=== PATIENT | female | born 2000 | race Caucasian/White ===

== ENCOUNTER 2021-03-11 00:02 | Emergency (ER) | payer MEDICAID, SELFPAY ==
[2021-03-11 00:59] VITALS: BP 89/58; PULSE 92; RESP 18; TEMP 36.9; O2SAT 95; BMI 32.0
[2021-03-11 02:02] LABS: Basophils % 0.3 %; Eosinophils # 0.1 10^3/uL (0.0-0.8); Eosinophils % 0.4 %; Hematocrit 38.9 % (37.0-47.0); Hemoglobin 13.1 g/dL (11.5-15.3); Lymphocytes # 0.8 10^3/uL (1.5-6.5); Lymphocytes % 6.8 %; Mean Corpuscular HGB Conc 33.7 g/dL (30.0-36.0); Mean Corpuscular Hemoglobin 31.1 pg (28.0-34.0); Mean Corpuscular Volume 92.4 fL (81-99); Mean Platelet Volume 10.6 fL (7.4-10.4); Monocytes # 0.6 10^3/uL (0.2-0.9); Monocytes % 5.2 %; Nucleated Red Blood Cells % 0 %; Platelet Count 241 10^3/cmm (130-400); Red Blood Count 4.21 10^6/uL (4.1-5.3); Red Cell Distribution Width 12.1 % (12.1-15.1); White Blood Count 11.4 10^3/uL (4.5-13.0)
[2021-03-11 02:08] LABS: HCG Qualitative Urine. Negative (Negative)
[2021-03-11 02:14] LABS: Bilirubin Urine 1+ (Negative); Blood Urine Neg (Negative); Glucose Urine UA Norm (Normal); Ketones Urine Negative (Negative); Nitrate Urine Negative (Negative); Protein Urine Neg (Negative); Urine Appearance Clear (CLEAR); Urine Color Yellow (Yellow); Urobilinogen Urine Norm (Negative); pH Urine 5 (5-7)
[2021-03-11 02:15] LABS: Alanine Aminotransferase 12 U/L (0-33); Albumin Level 4.1 g/dL (3.5-5.2); Alkaline Phosphatase 61 IU/L (35-105); Anion Gap 13.8 (5-19); Aspartate Amino Transferase 11 U/L (0-32); Blood Urea Nitrogen 11 mg/dL (6-20); Calcium 8.7 mg/dL (8.5-10.5); Carbon Dioxide 21 mmol/L (22-29); Chloride 102 mmol/L (98-107); Globulin 2.5 g/dL (1.3-4.6); Glomerular Filtration Rate 127.5 mL/min (90-130); Glucose 112 mg/dL (65-115); Lipase 32 U/L (13-60); Osmolality Calculated 276 mOsm/kg (285-295); Potassium 3.8 mmol/L (3.5-5.1); Sodium 133 mmol/L (136-145); Total Bilirubin 0.4 mg/dL (0.15-1.2); Total Protein 6.6 g/dL (6.6-8.7)
[2021-03-11 02:15] LABS: Add Urine Microscopic? YES; Bacteria Urine 1+ /hpf; Leukocyte Esterase Urine Trace (Negative); Mucus Urine 2+ /hpf; RBC Urine 0-4 /hpf (0-2); Squamous Epithelial Cell Urine 0-4 /hpf (0-5)
--- NOTE | 2021-03-11 02:55 | ED_ITS ---
HPI - Abdominal Pain General: Chief Complaint: Abdominal Pain Stated Complaint: mid abd pain Time Seen by Provider: 03/11/21 01:12 History of Present Illness: HPI narrative: Patient is well-appearing 20-year-old female seen for intermittent 6 of 10, sharp abdominal pain which she locates to the periumbilical region radiating both to the left and right which started earlier today. She also endorses diarrhea which started yesterday. She denies nausea, vomiting, fever, dysuria, frequency, and has no other acute complaints. She has never had pain like this before. She has not taken anything for the pain. She thinks she may be . Related Data: Date of Last Menstrual Period: 02/17/21 Review of Systems General: Reports: 10 or more systems reviewed and unremarkable except in HPI and below [facility] ED Female Reproductive History: Date of last menstrual period: 02/17/21 Physical Exam Const: COMMON NORMALS: no acute distress, patient oriented x3 and alert HENMT: COMMON NORMALS: normocephalic and atraumatic HEAD & SCALP: normocephalic and atraumatic Eye: COMMON NORMALS: Equal, round and reactive pupils present, EOMs intact bilaterally and no scleral icterus PUPIL: Yes Equal, round and reactive pupils present Resp: COMMON NORMALS: normal respiratory effort and No retractions Cardio: COMMON NORMALS: regular rate, regular rhythm and No murmurs present (Cardio) RATE: regular rate RHYTHM: regular rhythm GI: COMMON NORMALS: Normal to inspection, nondistended, normoactive bowel sounds present and Soft to palpation PALPATION: Yes Soft to palpation and Yes Tenderness to palpation present (GI) Details: other (Periumbilic and roughly 2 inches most to the left and right of the umbilicus) Neuro: COMMON NORMALS: patient oriented x3 SENSORIUM/ORIENTATION: Yes alert Skin: COMMON NORMALS: no rashes or lesions noted GENERAL SKIN EXAM: no rashes or lesions noted Course Vital Signs: Vital signs: Vital Signs Temperature 98.4 F 03/11/21 00:59 Pulse Rate 92 03/11/21 00:59 Respiratory Rate 18 03/11/21 00:59 Blood Pressure 89/58 03/11/21 00:59 Pulse Oximetry 95 03/11/21 00:59 MDM - Abdominal Pain MDM Narrative: Medical decision making narrative: Patient remained hemodynamically stable throughout ED course. Laboratory evaluation is reassuring. I do not suspect UTI, ectopic , or any other emergent process warranting further work-up at this time. I suspect she likely is suffering from viral process, likely enteritis, and she agrees to take [id number] medication and stay well-hydrated. She knows she is always welcome back in the emergency department if her symptoms get worse before outpatient follow-up. Differential Diagnosis: Differential diagnosis abdominal pain: Likely abdominal pain, acute appendicitis, calculus of kidney, gastroenteritis and pancreatitis Medical Records: Attestation: I reviewed the patient's medical records. Lab Data: Labs: Lab Results 03/11/21 03/11/21 03/11/21 Range/Units 01:55 01:55 02:03 WBC 11.4 (4.5-13.0) 10^3/ uL RBC 4.21 (4.1-5.3) 10^6/u L Hgb 13.1 (11.5-15.3) g/dL Hct 38.9 (37.0-47.0) % MCV 92.4 (81-99) fL MCH 31.1 (28.0-34.0) pg MCHC 33.7 (30.0-36.0) g/dL RDW 12.1 (12.1-15.1) % Plt Count 241 (130-400) 10^3/c mm MPV 10.6 H (7.4-10.4) fL Neut % (Auto) 87.0 % Lymph % (Auto) 6.8 % [place] % (Auto) 5.2 % Eos % (Auto) 0.4 % Baso % (Auto) 0.3 % Neut # (Auto) 9.90 H (1.8-8.0) 10^3/u L Lymph # (Auto) 0.8 L (1.5-6.5) 10^3/u L [place] # (Auto) 0.6 (0.2-0.9) 10^3/u L Eos # (Auto) 0.1 (0.0-0.8) 10^3/u L Baso # (Auto) 0.0 (0.0-0.1) 10^3/u L Nucleated RBC % (a uto) 0 % Nucleated RBCs # 0.0 /100WBC Sodium 133 L (136-145) mmol/L Potassium 3.8 (3.5-5.1) mmol/L Chloride 102 (98-107) mmol/L Carbon Dioxide 21 L (22-29) mmol/L Anion Gap 13.8 (5-19) BUN 11 (6-20) mg/dL Creatinine 0.6 (0.5-0.9) mg/dL GFR Calculation 127.5 (90-130) mL/min Glucose 112 (65-115) mg/dL Calculated Osmolal ity 276 L (285-295) mOsm/k g Calcium 8.7 (8.5-10.5) mg/dL Total Bilirubin 0.4 (0.15-1.2) mg/dL AST 11 (0-32) U/L ALT 12 (0-33) U/L Alkaline Phosphata se 61 (35-105) IU/L Total Protein 6.6 (6.6-8.7) g/dL Albumin 4.1 (3.5-5.2) g/dL Globulin 2.5 (1.3-4.6) g/dL Lipase 32 (13-60) U/L HCG, Qual Negative (Negative) Urine Color (Yellow) Urine Appearance (CLEAR) Urine pH (5-7) Ur Specific Gravit y (1.005-1.030) Urine Protein (Negative) Urine Glucose (UA) (Normal) Urine Ketones (Negative) Urine Blood (Negative) Urine Nitrate (Negative) Urine Bilirubin (Negative) Urine Urobilinogen (Negative) mg/dL Ur Leukocyte [place] ase (Negative) Urine RBC (0-2) /hpf Urine WBC (0-5) /hpf Ur Squamous Epith Cells (0-5) /hpf Amorphous Sediment Urine Bacteria (NONE) /hpf Urine Mucus /hpf 03/11/21 Range/Units 02:03 WBC (4.5-13.0) 10^3/ uL RBC (4.1-5.3) 10^6/u L Hgb (11.5-15.3) g/dL Hct (37.0-47.0) % MCV (81-99) fL MCH (28.0-34.0) pg MCHC (30.0-36.0) g/dL RDW (12.1-15.1) % Plt Count (130-400) 10^3/c mm MPV (7.4-10.4) fL Neut % (Auto) % Lymph % (Auto) % [place] % (Auto) % Eos % (Auto) % Baso % (Auto) % Neut # (Auto) (1.8-8.0) 10^3/u L Lymph # (Auto) (1.5-6.5) 10^3/u L [place] # (Auto) (0.2-0.9) 10^3/u L Eos # (Auto) (0.0-0.8) 10^3/u L Baso # (Auto) (0.0-0.1) 10^3/u L Nucleated RBC % (a uto) % Nucleated RBCs # /100WBC Sodium (136-145) mmol/L Potassium (3.5-5.1) mmol/L Chloride (98-107) mmol/L Carbon Dioxide (22-29) mmol/L Anion Gap (5-19) BUN (6-20) mg/dL Creatinine (0.5-0.9) mg/dL GFR Calculation (90-130) mL/min Glucose (65-115) mg/dL Calculated Osmolal ity (285-295) mOsm/k g Calcium (8.5-10.5) mg/dL Total Bilirubin (0.15-1.2) mg/dL AST (0-32) U/L ALT (0-33) U/L Alkaline Phosphata se (35-105) IU/L Total Protein (6.6-8.7) g/dL Albumin (3.5-5.2) g/dL Globulin (1.3-4.6) g/dL Lipase (13-60) U/L HCG, Qual (Negative) Urine Color Yellow (Yellow) Urine Appearance Clear (CLEAR) Urine pH 5 (5-7) Ur Specific Gravit y 1.020 (1.005-1.030) Urine Protein Neg (Negative) Urine Glucose (UA) Norm (Normal) Urine Ketones Negative (Negative) Urine Blood Neg (Negative) Urine Nitrate Negative (Negative) Urine Bilirubin 1+ H (Negative) Urine Urobilinogen Norm (Negative) mg/dL Ur Leukocyte [place] ase Trace H (Negative) Urine RBC 0-4 H (0-2) /hpf Urine WBC 5-10 H (0-5) /hpf Ur Squamous Epith Cells 0-4 H (0-5) /hpf Amorphous Sediment Not Reportable Urine Bacteria 1+ H (NONE) /hpf Urine Mucus 2+ /hpf Discharge Plan Discharge Patient Disposition: Home Clinical Impression: Abdominal pain, Diarrhea Condition: Stable Discharge Orders: Discharge ED (Routine); Ordered 03/11/21 Ordered By: Russell Dozier Discharge Diet: Usual diet Discharge Activity: Resume usual activity Patient Instructions: Abdominal Pain (ED) Coding Level of Care Code ED Family Advocate for Nani Thompson
[2021-03-11 03:00] VITALS: PULSE 88; RESP 16; O2SAT 96
== END 2021-03-11 03:01 | disposition home or self-care (01) ==
PROVIDERS: Emergency Provider Student in an Organized Health Care Education/Training Program
DX: R10.9 Unspecified abdominal pain (principal); R19.7 Diarrhea, unspecified
CPT/HCPCS: 80053; 81001; 81025; 83690; 85025; 99282

== ENCOUNTER 2021-06-26 19:51 | Inpatient (IN) | payer MEDICAID, SELFPAY ==
[2021-06-26 20:08] VITALS: BP 115/75; PULSE 81; RESP 18; TEMP 36.9; O2SAT 99
--- NOTE | 2021-06-26 20:27 | ED_ITS ---
HPI - Psych General: Chief Complaint: Psychiatric Symptoms Stated Complaint: si Time Seen by Provider: 06/26/21 20:16 History of Present Illness: HPI Narrative: 20-year-old female with no prior history of hospitalization or significant history of depression. She states that she has been having some suicidal thoughts on and off for a couple of weeks. She states she did have a plan. She abraded her thigh tonight, and was advised by family to come to the emergency room for evaluation and treatment she is here willingly. She says she has allergies, and has had a seasonal cough, but has not been ill in any other way MD complaint: suicidal ideation and feels depressed Onset (ago): day(s) Duration: constant and getting worse History of same: No Relieving factors: none Exacerbating factors: none Context: other Associated psychiatric symptoms: depression and suicidal ideation Associated symptoms: Reports depression and suicidal ideation; Deny auditory hallucinations, visual hallucinations, delusions, homicidal ideation or racing thoughts If self harm: admits thoughts of self harm and self-inflicted trauma Review of Systems Const: Denies: fever(s) or chills Card: Denies: chest pain or palpitations Resp: Reports: non-productive cough; Denies: dyspnea, productive cough or wheezing GI: Denies: abdominal pain, nausea, vomiting or diarrhea Psych: Reports: depression and suicidal ideation; Denies: visual hallucinations, auditory hallucinations or homicidal ideation [facility] ED Female Reproductive History: Date of last menstrual period: 06/21/21 Physical Exam Const: COMMON NORMALS: no acute distress and alert GENERAL APPEARANCE: cooperative, comfortable and well kempt; not ill appearing HENMT: COMMON NORMALS: normocephalic and atraumatic HEAD & SCALP: normocephalic and atraumatic Eye: COMMON NORMALS: Equal, round and reactive pupils present and EOMs intact bilaterally PUPIL: Yes Equal, round and reactive pupils present Resp: COMMON NORMALS: normal respiratory effort, No use of accessory muscles and clear to auscultation bilaterally AUSCULTATION: clear to auscultation bilaterally Cardio: COMMON NORMALS: regular rate and regular rhythm RATE: regular rate RHYTHM: regular rhythm GI: COMMON NORMALS: Normal to inspection, nondistended, normoactive bowel sounds present Neuro: SENSORIUM/ORIENTATION: Yes alert Psych: COMMON NORMALS: Normal thought process present, cooperative and speech normal APPEARANCE: Yes well kempt ATTITUDE: Yes calm ACTIVITY/MOTOR BEHAVIOR: Yes appropriate eye contact SPEECH: Yes normal speech MOOD & AFFECT: Yes depressed mood THOUGHT PROCESS: Normal thought process present THOUGHT CONTENT: Yes Suicidality present, No Homicidality present, No delusions and No Hallucination(s) present ATTENTION/CONCENTRATION: Yes attention grossly intact and Yes concentration grossly intact MEMORY/COGNITION: Yes memory grossly intact and Yes cognition grossly intact INSIGHT: Fair insight present (Psych) JUDGEMENT: Fair judgement present (Psych) Skin: NARRATIVE SKIN EXAM: Small very superficial abrasions to the anterior right mid thigh. Course Consultations: Consultation #1: Magdi Time: 22:13 Vital Signs: Vital signs: Vital Signs Temperature 98.2 F 06/26/21 22:50 Pulse Rate 80 06/26/21 23:12 Respiratory Rate 16 06/26/21 23:12 Blood Pressure 112/73 06/26/21 23:12 Pulse Oximetry 98 06/26/21 23:12 MDM - Psych MDM Narrative: Medical decision making narrative: 20-year-old female with history of anxiety. She presents with increasing depression and suicidal thou ghts. She is medically stable, although she has a urinary tract infection, which we will treat. She is willing to stay as an inpatient for psychiatric evaluation. Discussed with psychiatry and they agree to admit Lab Data: Labs: Lab Results 06/26/21 06/26/21 06/26/21 20:15 20:15 20:15 WBC RBC Hgb Hct MCV MCH MCHC RDW Plt Count MPV Neut % (Auto) Lymph % (Auto) [place] % (Auto) Eos % (Auto) Baso % (Auto) Neut # (Auto) Lymph # (Auto) [place] # (Auto) Eos # (Auto) Baso # (Auto) Nucleated RBC % (a uto) Nucleated RBCs # Sodium Potassium Chloride Carbon Dioxide Anion Gap BUN Creatinine GFR Calculation Glucose Calculated Osmolal ity Calcium Total Bilirubin AST ALT Alkaline Phosphata se Total Protein Albumin Globulin HCG, Qual Negative (Negative) Urine Color Yellow (Yellow) Urine Appearance Sl hazy (CLEAR) Urine pH 5 (5-7) Ur Specific Gravit y 1.020 (1.005-1.030) Urine Protein Neg (Negative) Urine Glucose (UA) Norm (Normal) Urine Ketones Negative (Negative) Urine Blood Neg (Negative) Urine Nitrate Negative (Negative) Urine Bilirubin Neg (Negative) Urine Urobilinogen 1 mg/dL H mg/dL (Negative) Ur Leukocyte [place] ase 2+ H (Negative) Urine RBC 0-4 /hpf H /hpf (0-2) Urine WBC 55-80 /hpf H /hpf (0-5) Ur Squamous Epith Cells 10-15 /hpf H /hpf (0-5) Amorphous Sediment Not Reportable Urine Bacteria 1+ /hpf H /hpf (NONE) Urine Mucus Trace /hpf /hpf Salicylates Urine Opiates Scre en Negative ng/mL ng /mL (Negative) Acetaminophen Ur Barbiturates Sc reen Negative ng/mL ng /mL (Negative) Ur Phencyclidine S crn Negative ng/mL ng /mL (Negative) Ur Amphetamines Sc reen Negative ng/mL ng /mL (Negative) U Benzodiazepines Scrn Negative ng/mL ng /mL (Negative) Urine Cocaine Scre en Negative ng/mL ng /mL (Negative) U Marijuana (THC) Screen Negative ng/mL ng /mL (Negative) Ethyl Alcohol 06/26/21 06/26/21 21:30 21:30 WBC 12.5 10^3/uL 10^3 /uL (4.5-13.0) RBC 4.10 10^6/uL 10^6 /uL (4.1-5.3) Hgb 12.6 g/dL g/dL (11.5-15.3) Hct 37.0 % % (37.0-47.0) MCV 90.2 fl fl (81-99) MCH 30.7 pg pg (28.0-34.0) MCHC 34.1 g/dL g/dL (30.0-36.0) RDW 12.2 % % (12.1-15.1) Plt Count 300 10^3/cmm 10^3 /cmm (130-400) MPV 10.5 fL H fL (7.4-10.4) Neut % (Auto) 75.5 % % Lymph % (Auto) 18.7 % % [place] % (Auto) 4.6 % % Eos % (Auto) 0.6 % % Baso % (Auto) 0.2 % % Neut # (Auto) 9.44 10^3/uL H 10 ^3/uL (1.8-8.0) Lymph # (Auto) 2.3 10^3/uL 10^3/ uL (1.5-6.5) [place] # (Auto) 0.6 10^3/uL 10^3/ uL (0.2-0.9) Eos # (Auto) 0.1 10^3/uL 10^3/ uL (0.0-0.8) Baso # (Auto) 0.0 10^3/uL 10^3/ uL (0.0-0.1) Nucleated RBC % (a uto) 0 % % Nucleated RBCs # 0.0 /100WBC /100W BC Sodium 138 mmol/L mmol/L (136-145) Potassium 3.8 mmol/L mmol/L (3.5-5.1) Chloride 106 mmol/L mmol/L (98-107) Carbon Dioxide 19 mmol/L L mmol/ L (22-29) Anion Gap 16.8 (5-19) BUN 9 mg/dL mg/dL (6-20) Creatinine 0.6 mg/dL mg/dL (0.5-0.9) GFR Calculation 127.5 mL/min mL/m in (90-130) Glucose 88 mg/dL mg/dL (65-115) Calculated Osmolal ity 284 mOsm/kg L mOs m/kg (285-295) Calcium 8.8 mg/dL mg/dL (8.5-10.5) Total Bilirubin 0.2 mg/dL mg/dL (0.15-1.2) AST 11 U/L U/L (0-32) ALT 10 U/L U/L (0-33) Alkaline Phosphata se 47 IU/L IU/L (35-105) Total Protein 6.5 g/dL L g/dL (6.6-8.7) Albumin 4.2 g/dL g/dL (3.5-5.2) Globulin 2.3 g/dL g/dL (1.3-4.6) HCG, Qual Urine Color Urine Appearance Urine pH Ur Specific Gravit y Urine Protein Urine Glucose (UA) Urine Ketones Urine Blood Urine Nitrate Urine Bilirubin Urine Urobilinogen Ur Leukocyte [place] ase Urine RBC Urine WBC Ur Squamous Epith Cells Amorphous Sediment Urine Bacteria Urine Mucus Salicylates < 0.3 mg/dL L mg/ dL (3-10) Urine Opiates Scre en Acetaminophen < 5.0 ug/mL L ug/ mL (10-30) Ur Barbiturates Sc reen Ur Phencyclidine S crn Ur Amphetamines Sc reen U Benzodiazepines Scrn Urine Cocaine Scre en U Marijuana (THC) Screen Ethyl Alcohol < 10 mg/dL mg/dL (0-10) Discharge Plan Discharge Patient Disposition: Admitted As Inpatient Admit Provider: Greg Fairbanks Clinical Impression: Suicidal ideation UTI (urinary tract infection) Qualifiers: Urinary tract infection type: acute cystitis Hematuria presence: without hematuria Qualified Code(s): N30.00 - Acute cystitis without hematuria Condition: Stable Coding Level of Care Code ED Director Of Nurses Registry for Chg Fwd Exam Detailed
[2021-06-26 20:28] LABS: HCG Qualitative Urine. Negative (Negative)
[2021-06-26 20:36] VITALS: BP 104/61; PULSE 85; RESP 16; TEMP 36.8; O2SAT 98
[2021-06-26 20:38] LABS: Bilirubin Urine Neg (Negative); Blood Urine Neg (Negative); Glucose Urine UA Norm (Normal); Ketones Urine Negative (Negative); Nitrate Urine Negative (Negative); Protein Urine Neg (Negative); Urine Appearance SL Hazy (CLEAR); Urine Color Yellow (Yellow); Urobilinogen Urine 1 mg/dL (Negative); pH Urine 5 (5-7)
[2021-06-26 20:39] LABS: Add Urine Culture? No; Add Urine Microscopic? YES; Bacteria Urine 1+ /hpf; Leukocyte Esterase Urine 2+ (Negative); Mucus Urine TRACE /hpf; RBC Urine 0-4 /hpf (0-2); WBC Urine 55-80 /hpf (0-5)
[2021-06-26 20:47] LABS: Amphetamines Screen Urine Negative (Negative); Barbiturates Screen Urine Negative (Negative); Benzodiazepines Screen Urine Negative (Negative); Cocaine Screen Urine Negative (Negative); Opiate Screen Urine Negative (Negative); PCP Screen Urine Negative (Negative); THC Screen Urine Negative (Negative)
[2021-06-26 21:42] LABS: Basophils % 0.2 %; Eosinophils # 0.1 10^3/uL (0.0-0.8); Eosinophils % 0.6 %; Hemoglobin 12.6 g/dL (11.5-15.3); Lymphocytes # 2.3 10^3/uL (1.5-6.5); Lymphocytes % 18.7 %; Mean Corpuscular HGB Conc 34.1 g/dL (30.0-36.0); Mean Corpuscular Hemoglobin 30.7 pg (28.0-34.0); Mean Corpuscular Volume 90.2 fl (81-99); Mean Platelet Volume 10.5 fL (7.4-10.4); Monocytes # 0.6 10^3/uL (0.2-0.9); Monocytes % 4.6 %; Neutrophils # 9.44 10^3/uL (1.8-8.0); Neutrophils % 75.5 %; Nucleated Red Blood Cells % 0 %; Platelet Count 300 10^3/cmm (130-400); Red Cell Distribution Width 12.2 % (12.1-15.1); White Blood Count 12.5 10^3/uL (4.5-13.0)
[2021-06-26 22:03] LABS: Alanine Aminotransferase 10 U/L (0-33); Albumin Level 4.2 g/dL (3.5-5.2); Alkaline Phosphatase 47 IU/L (35-105); Anion Gap 16.8 (5-19); Aspartate Amino Transferase 11 U/L (0-32); Blood Urea Nitrogen 9 mg/dL (6-20); Calcium 8.8 mg/dL (8.5-10.5); Carbon Dioxide 19 mmol/L (22-29); Chloride 106 mmol/L (98-107); Globulin 2.3 g/dL (1.3-4.6); Glomerular Filtration Rate 127.5 mL/min (90-130); Glucose 88 mg/dL (65-115); Osmolality Calculated 284 mOsm/kg (285-295); Potassium 3.8 mmol/L (3.5-5.1); Sodium 138 mmol/L (136-145); Total Bilirubin 0.2 mg/dL (0.15-1.2); Total Protein 6.5 g/dL (6.6-8.7)
[2021-06-26 22:05] LABS: Acetaminophen < 5.0 ug/mL (10-30); Alcohol Level < 10 mg/dL (0-10); Salicylate < 0.3 mg/dL (3-10)
[2021-06-26] MEDS: sulfamethoxazole-trimeth DS 160-800 mg Tablet 1 TAB PO (22:14)
[2021-06-26 22:50] VITALS: BP 108/69; PULSE 80; RESP 16; TEMP 36.8; O2SAT 97
[2021-06-26 23:12] VITALS: BP 112/73; PULSE 80; RESP 16; O2SAT 98
--- NOTE | 2021-06-27 01:31 | PC.ADMIT ---
[id number] Admission Note: The patient,Ciarra Danielson,20 y/o, was given written information regarding hospital policies, unit procedures and contact persons. Patient's smoking status: . Vital Signs - 8 hr 06/26/21 20:08 06/26/21 20:36 06/26/21 22:50 Temperature 98.4 F 98.3 F 98.2 F Pulse Rate 85 80 Pulse Rate [Monitor] 81 Respiratory Rate 18 16 16 Blood Pressure 104/61 108/69 Blood Pressure [Left Arm] 115/75 Pulse Oximetry 99 98 97 06/26/21 23:12 Temperature Pulse Rate 80 Pulse Rate [Monitor] Respiratory Rate 16 Blood Pressure 112/73 Blood Pressure [Left Arm] Pulse Oximetry 98 20-year-old female with no prior history of hospitalization or significant history of depression. She states that she has been having some suicidal thoughts on and off for a couple of weeks. She states she did have a plan. She abraded her thigh tonight, and was advised by family to come to the emergency room for evaluation and treatment she is here willingly. She says she has allergies, and has had a seasonal cough, but has not been ill in any other way MD complaint: suicidal ideation and feels depressed Patient arrives to the unit alert/oriented x4. Patient has fair eye contact, is well groomed and polite. Patient appears sad. Skin assessment performed with 2 RN's - unremarkable. Patient changed into cotton scrubs. Pt removed her jewelry and placed in denture cup. Patient to day room for further assessment. Refreshments offered. Initially patient is very soft spoken and guarded. She stated she has never been to a Psychiatric facility before. Patient states she drove herself to the ER on the advice of her Mother in Law Maggie. She states she has been very depressed for approx 2 weeks. She was seen at a local clinic 2 weeks ago where she was prescribed Buspar and Topamax. She states she tried the medication for approx 1 week and they didn't help so she quit taking them. She reports that she has started cutting on her thighs due to her depression. Patient does have visible, minor superficial luther on her upper thigh. She denies a prior hx of cutting. She states that her 22 yr old hsb has been cheating on her, staying out all night and drinking alcohol nightly. They have 2 children together ages 2 and 3. They all live with her parents. She states he has quit coming home for the last several nights and that they are supposed to be getting . Patient states she works part-time at [employer]. Her most reliable support person is her Mother in Law. Patient states she is depressed because of her 's cheating and the fact that she still loves him and doesn't want the divorce. Patient is very tearful and states she has been having thoughts about hurting herself but has no plan or idea of how she would hurt herself. Patient rates depression 8, anxiety 8. She denies any current SI/HI, hallucinations.She denies any pain. Patient does not currently take any prescription medications. She does not use any recreational drugs and only has an occasional wine cooler. She does smoke approx 1/2 pack of cigarettes a day but states she doesn't need any nicotine gum or patch while here. Patient is hoping to speak to the Physician and get help with her depression and anxiety. Patient appears willing to participate in the plan of care. Patient oriented to unit and she retired to bed. Will continue to monitor and follow plan of care. Q 15 min safety checks per protocol.
[2021-06-27 06:00] VITALS: BP 91/55; PULSE 79; RESP 15; TEMP 36.7; O2SAT 98
[2021-06-27] MEDS: sulfamethoxazole-trimeth DS 160-800 mg Tablet 1 TAB PO ×2 (10:33→17:48)
--- NOTE | 2021-06-27 12:52 | PM.NHP ---
Providers/Chief Complaint Admitting Physician: Greg Fairbanks MD Chief Complaint: si HPI NPU History of Present Illness Ciarra Danielson is a 20 year old female admitted for treatment of new onset suicidal ideation over the past couple of weeks, along with a plan. The ED note states 20-year-old female with no prior history of hospitalization or significant history of depression. She states that she has been having some suicidal thoughts on and off for a couple of weeks. She states she did have a plan. She abraded her thigh tonight, and was advised by family to come to the emergency room for evaluation and treatment she is here willingly. She says she has allergies, and has had a seasonal cough, but has not been ill in any other way. MD complaint: suicidal ideation and feels depressed. Meds NPU Home Medications Medication Instructions Recorded Confirmed Last Taken Type buspirone 5 mg tablet 5 mg PO TID 30 Days #90 tab 06/15/21 06/15/21 Unknown Rx topiramate 25 mg tablet 25 mg PO DAILY 30 Days #30 tab 06/15/21 06/26/21 Unknown Rx Allergies Allergy/AdvReac Type Severity Reaction Status Date / Time No Known Allergies Allergy Verified 06/15/21 16:07 Vitals/I&O/Wt Last Vital Signs Temp 98.0 F 06/27/21 06:00 Pulse 79 06/27/21 06:00 Resp 15 06/27/21 06:00 BP 91/55 06/27/21 06:00 Pulse Ox 98 06/27/21 06:00 Weight last 48 hrs Weight 69.853 kg Data NPU : 06/26/21 21:30 06/26/21 21:30 Involuntary Hold Information 96 Hour Hold: 96 Hour Involuntary Admission: No Coding Level of Care Code Acute Computer Aided Design Operator for Nani Thompson
[2021-06-27 14:00] VITALS: BP 106/69; PULSE 79; RESP 18; TEMP 36.7; O2SAT 98
[2021-06-27] MEDS: sertraline 50 mg Tablet PO (17:48)
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
== END 2021-06-27 20:11 | disposition left against medical advice (07) | DRG 885 ==
LOC: ER 22:15 → NP 23:43
PROVIDERS: Admitting Provider Psychiatry & Neurology Child & Adolescent Psychiatry; Emergency Provider Emergency Medicine; Visit Provider Psychiatry & Neurology Child & Adolescent Psychiatry
DX: F33.1 Major depressive disorder, recurrent, moderate (principal); N30.00 Acute cystitis without hematuria; R45.851 Suicidal ideations; F41.0 Panic disorder [episodic paroxysmal anxiety]; F41.9 Anxiety disorder, unspecified; F17.210 Nicotine dependence, cigarettes, uncomplicated; Z53.29 Procedure and treatment not carried out because of patient's decision for other reasons; Z63.5 Disruption of family by separation and divorce
CPT/HCPCS: 80053; 80306; 80307; 81001; 81025; 85025; 99285

== ENCOUNTER 2021-07-01 06:40 | Emergency (ER) | payer MEDICAID, SELFPAY ==
[2021-07-01 06:49] VITALS: BP 98/68; PULSE 69; RESP 16; TEMP 36.2; O2SAT 99; BMI 29.2
--- NOTE | 2021-07-01 07:05 | W.ED.SEIZURE ---
HPI - Seizure General: Chief Complaint: Seizure Stated Complaint: SEIZURES W/VOMITING - 2 TODAY Time Seen by Provider: 07/01/21 06:50 History of Present Illness: HPI Narrative: 20-year-old female presents with a new boyfriend stating that she may have had a seizure. Patient reports that this morning she woke up and was nauseated. She reports she got lightheaded and her hearing sort of went distant. She says she then vomited and sort of blacked out for a few seconds. Boyfriend states that he was present during this time but was in an adjacent room. He says that he heard her vomit and then she was laying in bed with her eyes wide open for a few seconds. Patient reports that she did feel slightly disoriented after these few seconds and took a second for her hearing to return to normal. She did tell me that in the past she had an episode like this a few years ago. Patient has recently been admitted for psychiatric concerns of anxiety and depression with suicidal ideation. She was restarted on Topamax. She started treatment for UTI with bactrim, and two new meds: buspar and sertraline were started. No tongue biting, tonic clonic movements, incontinence, or post-ictal phase. Patient notes that her UTI symptoms are gone. She is currently on her menstrual cycle and had neg UPT test 06/26/21. Associated symptoms: Reports syncope; Deny chest pain, chills, confusion or fever(s) Review of Systems General: Reports: 10 or more systems reviewed and unremarkable except in HPI and below Const: Denies: fever(s), chills or body aches Eyes: Denies: change in vision ENMT: Denies: throat pain Card: Reports: lightheadedness, syncope and pre-syncope; Denies: chest pain, palpitations, irregular heart rhythm, edema, swelling of feet/ankles or dyspnea on exertion Resp: Denies: dyspnea, productive cough, non-productive cough, wheezing or stridor GI: Reports: nausea and vomiting; Denies: abdominal pain, diarrhea or constipation : Denies: flank pain, dysuria, urinary frequency or urinary urgency Musc: Denies: neck pain, back pain, extremity pain or extremity swelling Skin/Breast: Denies: rash or erythema Neuro: Denies: headache(s), numbness in extremities, weakness in extremities, lack of coordination, difficulty walking, dizziness, vertigo, confusion, Slurred speech present, difficulty communicating thoughts, seizure-like activity or restless legs [facility] ED Female Reproductive History: Date of last menstrual period: 06/12/21 Physical Exam Const: COMMON NORMALS: no acute distress, average body habitus, patient oriented x3, no limitations, healthy appearing, alert and well nourished EXAM LIMITATIONS: no altered mental status and no behavioral limitations GENERAL APPEARANCE: cooperative, comfortable, well kempt and well developed; not in distress, not anxious, not combative, not disheveled and not ill appearing ORIENTATION/CONSCIOUSNESS: Yes awake; not confused HENMT: COMMON NORMALS: normocephalic, atraumatic, external ears normal and Normal external nose present HEAD & SCALP: normal to inspection, normocephalic and atraumatic FACE & SINUS: face symmetric NOSE: Normal external nose present EXTERNAL EAR: Yes external ears normal MOUTH: lip normal; no muffled voice Eye: COMMON NORMALS: Equal, round and reactive pupils present, EOMs intact bilaterally, conjunctivae normal and no scleral icterus GENERAL EYE: appearance normal, both eyes and all related structures CONJUNCTIVA: Yes conjunctivae normal PUPIL: Yes Equal, round and reactive pupils present Neck/C-Spine: COMMON NORMALS: no meningeal signs and no JVD GENERAL: Yes normal visual inspection and Yes trachea midline Resp: COMMON NORMALS: normal respiratory effort, No retractions, No use of accessory muscles and clear to auscultation bilaterally EFFORT & INSPECTION: Yes able to speak in complete sentences, Yes symmetric chest movement, No tachypneic and No respiratory distress AUSCULTATION: clear to auscultation bilaterally Cardio: COMMON NORMALS: no JVD, regular rate and regular rhythm RATE: regular rate RHYTHM: regular rhythm PERIPHERAL PULSES: radial pulses present GI: COMMON NORMALS: Soft to palpation and non-tender INSPECTION: Yes normal to inspection PALPATION: Yes Soft to palpation, No Tenderness to palpation present (GI) and No Guarding due to palpation present (GI) Back/Pelvis: COMMON NORMALS: thoraco-lumbar ROM normal Extremity: COMMON NORMALS: normal to inspection and no pedal edema GENERAL: Yes normal exam except as noted Neuro: COMMON NORMALS: patient oriented x3, moves all extremities, no focal motor deficits and no sensory deficits noted SENSORIUM/ORIENTATION: Yes alert MENINGEAL SIGNS: Yes no meningeal signs COORDINATION/BALANCE: other (grossly intact with observation of movements) SPEECH: speech normal MOTOR EXAM: no tremor noted, no asterixis, Motor fasciculations not present, Normal motor muscle tone present throughout and Motor abnormalities not present COORDINATION: other (grossly intact with observation of movements) Psych: COMMON NORMALS: mental status grossly normal, Normal thought process present, cooperative, normal affect and speech normal APPEARANCE: Yes well kempt SPEECH: Yes normal speech MOOD & AFFECT: Yes elevated mood, No apathetic, No anxious, No euphoric and No irritable THOUGHT PROCESS: Normal thought process present MEMORY/COGNITION: Yes memory grossly intact Skin: COMMON NORMALS: no rashes or lesions noted, turgor normal and no jaundice GENERAL SKIN EXAM: no rashes or lesions noted and turgor normal Course Vital Signs: Vital signs: Vital Signs Temperature 97.1 F L 07/01/21 06:49 Pulse Rate 69 07/01/21 06:49 Respiratory Rate 16 07/01/21 06:49 Blood Pressure 98/68 07/01/21 06:49 Pulse Oximetry 99 07/01/21 06:49 MDM - Seizure MDM Narrative: Medical decision making narrative: 20 yo f with a brief (few seconds) syncopal or near syncopal episode. She was nauseated and vomited just prior to it and had presyncopal symptoms. No postictal phase, incontinence, tonic clonic movements, or other classic findings of seizure. She is on topiramate for headaches which should reduce seizures but on buspar and sertraline which could lower threshold. Regardless, this did not sound epileptic. Similarly, I do not think it was cardiogenic, thromboembolic, ICH, or other dangerous mechanism. Patient has recently had lab workup and UPT. SHe's on her period now. She is completely asymptomatic. I counseled her that it sounded vagal induced and I didn't recommend further workup at this time given quick resolution and low likelihood of emergent etiology. Patient was in agreement. Discharge Plan Discharge Patient Disposition: Home Clinical Impression: Vaso vagal episode Condition: Stable Prescriptions: No Action topiramate [Topamax] 25 mg tablet 25 mg PO DAILY 30 Days Qty: 30 RF: 0 buspirone 5 mg tablet 5 mg PO TID 30 Days Qty: 90 RF: 0 sertraline 50 mg Tablet 50 mg PO DAILY 30 Days Qty: 30 RF: 0 sulfamethoxazole-trimethoprim 800-160 mg Tablet 1 tab PO BID 9 Days Qty: 18 RF: 0 Discharge Orders: Discharge ED (Routine); Ordered 07/01/21 Ordered By: Rafal Cast Referrals: Sulma Flores DO [Physician] - 1 week (20 yo f in need of primary care. Anxiety/depression, UTIs, smoking, women's health. ) Discharge Diet: Usual diet Discharge Activity: Resume usual activity Patient Instructions: Syncope (ED), Opioid Safety, Seizures Coding Level of Care Code ED Staffing Rn for Nani Thompson
== END 2021-07-01 07:46 | disposition home or self-care (01) ==
PROVIDERS: Emergency Provider Emergency Medicine
DX: R55 Syncope and collapse (principal); R11.2 Nausea with vomiting, unspecified
CPT/HCPCS: 99281

== ENCOUNTER 2021-07-19 21:14 | Emergency (ER) | payer MEDICAID, SELFPAY ==
[2021-07-19 21:24] VITALS: BP 121/78; PULSE 100; RESP 16; TEMP 36.2; O2SAT 98; BMI 30.4
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
[2021-07-19 22:53] LABS: Basophils % 0.3 %; Eosinophils # 0.1 10^3/uL (0.0-0.8); Eosinophils % 0.9 %; Hematocrit 41.6 % (37.0-47.0); Hemoglobin 14.2 g/dL (11.5-15.3); Lymphocytes # 2.8 10^3/uL (1.5-6.5); Lymphocytes % 21.8 %; Mean Corpuscular HGB Conc 34.1 g/dL (30.0-36.0); Mean Corpuscular Volume 90.8 fl (81-99); Mean Platelet Volume 10.7 fL (7.4-10.4); Monocytes # 0.9 10^3/uL (0.2-0.9); Monocytes % 6.9 %; Neutrophils # 9.01 10^3/uL (1.8-8.0); Neutrophils % 69.9 %; Nucleated Red Blood Cells % 0 %; Platelet Count 316 10^3/cmm (130-400); Red Blood Count 4.58 10^6/uL (4.1-5.3); Red Cell Distribution Width 12.5 % (12.1-15.1); White Blood Count 12.9 10^3/uL (4.5-13.0)
[2021-07-19 23:12] LABS: Alanine Aminotransferase 13 U/L (0-33); Albumin Level 4.6 g/dL (3.5-5.2); Alkaline Phosphatase 48 IU/L (35-105); Anion Gap 16.5 (5-19); Aspartate Amino Transferase 12 U/L (0-32); Blood Urea Nitrogen 9 mg/dL (6-20); Calcium 9.3 mg/dL (8.5-10.5); Carbon Dioxide 23 mmol/L (22-29); Chloride 101 mmol/L (98-107); Globulin 2.5 g/dL (1.3-4.6); Glomerular Filtration Rate 106.7 mL/min (90-130); Glucose 102 mg/dL (65-115); Osmolality Calculated 283 mOsm/kg (285-295); Potassium 3.5 mmol/L (3.5-5.1); Sodium 137 mmol/L (136-145); Total Bilirubin 0.2 mg/dL (0.15-1.2); Total Protein 7.1 g/dL (6.6-8.7)
[2021-07-19 23:36] LABS: Add Urine Microscopic? YES; Bilirubin Urine 1+ (Negative); Blood Urine Neg (Negative); Glucose Urine UA Norm (Normal); Ketones Urine Negative (Negative); Leukocyte Esterase Urine 1+ (Negative); Nitrate Urine Negative (Negative); Protein Urine Neg (Negative); Urine Appearance SL Hazy (CLEAR); Urine Color Yellow (Yellow); Urobilinogen Urine 4 mg/dL (Negative); pH Urine 7 (5-7)
[2021-07-19 23:47] LABS: Add Urine Culture? No; Amorphous Sediment Urine 1+ /hpf; Bacteria Urine 1+ /hpf; Calcium Oxalate Crystals Urine 15-25 /hpf; RBC Urine 0-4 /hpf (0-2); Squamous Epithelial Cell Urine 15-25 /hpf (0-5); WBC Urine 0-4 /hpf (0-5)
[2021-07-19 23:48] LABS: HIV 1 & 2 Antibody Non-Reactive (Non-Reactiv); HIV 1 & 2 Antigen Non-Reactive (Non-Reactiv)
[2021-07-19 23:54] VITALS: BP 121/78; PULSE 100; RESP 16; O2SAT 98
[2021-07-20 02:57] LABS: Rapid Plasma Reagin Syphilis Nonreactive (Nonreactive)
[2021-07-20 02:59] LABS: Hepatitis A Antibody IgM Non-Reactive (Nonreactive); Hepatitis B Core IgM Non-Reactive (Nonreactive); Hepatitis C Virus Antibody Non-Reactive (Nonreactive)
[2021-07-20 11:55] LABS: Hepatitis B Surface Antigen Non-Reactive (Nonreactive)
== END 2021-07-19 23:40 | disposition short-term general hospital (02) ==
PROVIDERS: Emergency Provider Nurse Practitioner Family
DX: T74.21XA Adult sexual abuse, confirmed, initial encounter (principal); Y07.11 Biological father, perpetrator of maltreatment and neglect
CPT/HCPCS: 80053; 80074; 81001; 81025; 85025; 86592; 87491; 87591; 87806; 99283

== ENCOUNTER 2021-07-24 22:28 | Emergency (ER) | payer MEDICAID, SELFPAY ==
[2021-07-24 22:38] VITALS: BP 122/76; PULSE 97; RESP 16; TEMP 36.8; O2SAT 98
--- NOTE | 2021-07-24 22:45 | W.ED.ABDPA2 ---
HPI - Abdominal Pain General: Chief Complaint: Abdominal Pain Stated Complaint: ABD Pain Time Seen by Provider: 07/24/21 22:45 History of Present Illness: HPI narrative: 20-year-old female comes in today with generalized abdominal pain. Patient states that for the last 3 days she has had increasing abdominal pain where has become severe tonight. Patient reports nausea and diarrhea. Patient reports no vomiting. Patient appears well. Patient appears in mild to moderate pain. Related Data: Date of Last Menstrual Period: 08/01/20 Review of Systems General: Reports: 10 or more systems reviewed and unremarkable except in HPI and below GI: Reports: abdominal pain [facility] ED Female Reproductive History: Date of last menstrual period: 08/01/20 Physical Exam Const: COMMON NORMALS: no acute distress and patient oriented x3 GENERAL APPEARANCE: cooperative HENMT: COMMON NORMALS: normocephalic and Normal external nose present HEAD & SCALP: normal to inspection and normocephalic NOSE: Normal external nose present MOUTH: Normal oral and palatal mucosa present Eye: GENERAL EYE: appearance normal, both eyes and all related structures Neck/C-Spine: COMMON NORMALS: full ROM Chest: COMMONS NORMALS: normal inspection of the chest Resp: COMMON NORMALS: normal respiratory effort EFFORT & INSPECTION: Yes able to speak in complete sentences Cardio: COMMON NORMALS: regular rate and regular rhythm RATE: regular rate RHYTHM: regular rhythm GI: COMMON NORMALS: Soft to palpation AUSCULTATION: Yes normoactive bowel sounds PALPATION: Yes Soft to palpation and Yes Tenderness to palpation present (GI) (Generalized) : COMMON NORMALS: Yes no CVA tenderness BLADDER/KIDNEY EXAM: Yes no CVA tenderness Back/Pelvis: COMMON NORMALS: no CVA tenderness and thoracic and lumbar spine normal to inspection Extremity: COMMON NORMALS: normal to inspection Neuro: COMMON NORMALS: patient oriented x3 and moves all extremities Psych: COMMON NORMALS: mental status grossly normal and cooperative Skin: COMMON NORMALS: no rashes or lesions noted GENERAL SKIN EXAM: no rashes or lesions noted Course Vital Signs: Vital signs: Vital Signs Temperature 98.2 F 07/24/21 22:38 Pulse Rate 97 07/24/21 22:38 Respiratory Rate 16 07/24/21 22:38 Blood Pressure 122/76 07/24/21 22:38 Pulse Oximetry 98 07/24/21 22:38 MDM - Abdominal Pain MDM Narrative: Medical decision making narrative: Patient comes in with abdominal pain. On exam abdomen soft with some generalized tenderness. Bowel sounds are present. Skin is warm and dry. Vital signs are normal. Differential diagnosis includes but not limited to gastroenteritis, gastritis, pancreatitis, cholecystitis. CBC noted a mild elevation in white blood cells at 13,000, CMP was unremarkable, and urinalysis was clear. CT of the abdomen and pelvis noted a ovarian cyst with some free fluid in the pelvis. Suspect patient probably has a ruptured ovarian cyst. Patient was treated for nausea with Zofran and fentanyl 25 mg for pain and 40 mg of famotidine for gastritis. Believe the patient probably has an ovarian cyst and will treat with diclofenac for her pain and discomfort. Patient was recommended to follow-up with primary care for further instructions return to the ER for fever or blood in vomit or stool. Lab Data: Labs: Lab Results 07/24/21 07/24/21 07/24/21 23:05 23:05 23:05 WBC 13.2 10^3/uL H 10 ^3/uL (4.5-13.0) RBC 4.37 10^6/uL 10^6 /uL (4.1-5.3) Hgb 13.7 g/dL g/dL (11.5-15.3) Hct 39.5 % % (37.0-47.0) MCV 90.4 fl fl (81-99) MCH 31.4 pg pg (28.0-34.0) MCHC 34.7 g/dL g/dL (30.0-36.0) RDW 12.7 % % (12.1-15.1) Plt Count 295 10^3/cmm 10^3 /cmm (130-400) MPV 11.0 fL H fL (7.4-10.4) Neut % (Auto) 73.3 % % Lymph % (Auto) 18.6 % % [place] % (Auto) 5.2 % % Eos % (Auto) 1.9 % % Baso % (Auto) 0.5 % % Neut # (Auto) 9.69 10^3/uL H 10 ^3/uL (1.8-8.0) Lymph # (Auto) 2.5 10^3/uL 10^3/ uL (1.5-6.5) [place] # (Auto) 0.7 10^3/uL 10^3/ uL (0.2-0.9) Eos # (Auto) 0.3 10^3/uL 10^3/ uL (0.0-0.8) Baso # (Auto) 0.1 10^3/uL 10^3/ uL (0.0-0.1) Nucleated RBC % (a uto) 0 % % Nucleated RBCs # 0.0 /100WBC /100W BC Sodium 139 mmol/L mmol/L (136-145) Potassium 3.7 mmol/L mmol/L (3.5-5.1) Chloride 105 mmol/L mmol/L (98-107) Carbon Dioxide 20 mmol/L L mmol/ L (22-29) Anion Gap 17.7 (5-19) BUN 7 mg/dL mg/dL (6-20) Creatinine 0.8 mg/dL mg/dL (0.5-0.9) GFR Calculation 91.4 mL/min mL/mi n (90-130) Glucose 100 mg/dL mg/dL (65-115) Calculated Osmolal ity 286 mOsm/kg mOsm/ kg (285-295) Calcium 9.0 mg/dL mg/dL (8.5-10.5) Total Bilirubin 0.2 mg/dL mg/dL (0.15-1.2) AST 16 U/L U/L (0-32) ALT 19 U/L U/L (0-33) Alkaline Phosphata se 48 IU/L IU/L (35-105) Total Protein 7.1 g/dL g/dL (6.6-8.7) Albumin 4.6 g/dL g/dL (3.5-5.2) Globulin 2.5 g/dL g/dL (1.3-4.6) Lipase 51 U/L U/L (13-60) HCG, Qual Negative (Negative) Discharge Plan Discharge Patient Disposition: Home Clinical Impression: Ovarian cyst Qualifiers: Laterality: right Qualified Code(s): N83.201 - Unspecified ovarian cyst, right side Condition: Stable Prescriptions: New diclofenac potassium 50 mg tablet 50 mg PO Q8H PRN (Reason: pain) Qty: 12 RF: 0 No Action topiramate [Topamax] 25 mg tablet 25 mg PO DAILY 30 Days Qty: 30 RF: 0 buspirone 5 mg tablet 5 mg PO TID 30 Days Qty: 90 RF: 0 sertraline 50 mg Tablet 50 mg PO DAILY 30 Days Qty: 30 RF: 0 Discharge Orders: Discharge ED (Routine); Ordered 07/25/21 Ordered By: Benjamin Marte Discharge Diet: Usual diet Discharge Activity: Increase activity as tolerated Patient Instructions: Ovarian Cyst (ED), Opioid Safety Activity Restrictions/Additional Instructions: Home and rest. Drink plenty of fluids. Use diclofenac for pain. Follow-up with primary care for further instructions. You may also use ice or heat to the area for further comfort. Return to the ER for high fever greater than 100.4, or blood in vomit or stool. Coding Level of Care Code ED Wrapper Layer And Examiner Soft Work for Nani Thompson Exam Comprehensive
[2021-07-24 23:22] LABS: Basophils # 0.1 10^3/uL (0.0-0.1); Basophils % 0.5 %; Eosinophils # 0.3 10^3/uL (0.0-0.8); Eosinophils % 1.9 %; Hematocrit 39.5 % (37.0-47.0); Hemoglobin 13.7 g/dL (11.5-15.3); Lymphocytes # 2.5 10^3/uL (1.5-6.5); Lymphocytes % 18.6 %; Mean Corpuscular HGB Conc 34.7 g/dL (30.0-36.0); Mean Corpuscular Hemoglobin 31.4 pg (28.0-34.0); Mean Corpuscular Volume 90.4 fl (81-99); Monocytes # 0.7 10^3/uL (0.2-0.9); Monocytes % 5.2 %; Neutrophils # 9.69 10^3/uL (1.8-8.0); Neutrophils % 73.3 %; Nucleated Red Blood Cells % 0 %; Platelet Count 295 10^3/cmm (130-400); Red Blood Count 4.37 10^6/uL (4.1-5.3); Red Cell Distribution Width 12.7 % (12.1-15.1); White Blood Count 13.2 10^3/uL (4.5-13.0)
--- NOTE | 2021-07-24 23:23 | CTR_ITS ---
PROCEDURE INFORMATION: Exam: CT Abdomen And Pelvis With Contrast Exam date and time: 07/24/2021 11:23 PM Age: 20 years old Clinical indication: Abdominal pain; Generalized; Patient HX: Diffuse abd pain with nausea and diarrhea. TECHNIQUE: Imaging protocol: Computed tomography of the abdomen and pelvis with contrast. Radiation optimization: All CT scans at this facility use at least one of these dose optimization techniques: automated exposure control; mA and/or kV adjustment per patient size (includes targeted exams where dose is matched to clinical indication); or iterative reconstruction. Contrast material: OMNI 300; Contrast volume: 95 ml; Contrast route: INTRAVENOUS (IV); COMPARISON: [place] [id number] 08/11/2018 4:37 PM RADIATION DOSE METRICS: Total DLP (mGy-cm): 1474.28 FINDINGS: Liver: Right hepatic lobe 16 mm cyst. Hepatic steatosis. Gallbladder and bile ducts: Normal. No calcified stones. No ductal dilation. Pancreas: Normal. No ductal dilation. Spleen: Normal. No splenomegaly. Adrenal glands: Normal. No mass. Kidneys and ureters: Normal. No hydronephrosis. Stomach and bowel: Unremarkable. No obstruction. No mucosal thickening. Appendix: No evidence of appendicitis. Intraperitoneal space: Unremarkable. No free air. No significant fluid collection. Vasculature: Unremarkable. No abdominal aortic aneurysm. Lymph nodes: Unremarkable. No enlarged lymph nodes. Urinary bladder: Unremarkable as visualized. Reproductive: Left ovary 2 cm peripherally enhancing cyst with some surrounding fluid suggestive of a partially collapsed follicle. Bones/joints: Unremarkable. No acute fracture. Soft tissues: Unremarkable. Other findings: Small amount of nonspecific fluid in the pelvis. CT/CT abdomen pelvis w con* [id number] IMPRESSION: 1. Left ovary 2 cm peripherally enhancing cyst with some surrounding fluid suggestive of a partially collapsed follicle. 2. Small amount of nonspecific fluid in the pelvis. 3. Right hepatic lobe 16 mm cyst. 4. Hepatic steatosis. Radiation Dose CTDIVOL = (mGy): DLP = 1474.28 (mGy-cm)
[2021-07-24 23:35] LABS: HCG, Serum Qual Negative (Negative)
[2021-07-24] MEDS: iohexol 300 mg/mL 100 mL Btl IV (23:42)
[2021-07-24 23:47] LABS: Alanine Aminotransferase 19 U/L (0-33); Albumin Level 4.6 g/dL (3.5-5.2); Alkaline Phosphatase 48 IU/L (35-105); Anion Gap 17.7 (5-19); Aspartate Amino Transferase 16 U/L (0-32); Blood Urea Nitrogen 7 mg/dL (6-20); Carbon Dioxide 20 mmol/L (22-29); Chloride 105 mmol/L (98-107); Globulin 2.5 g/dL (1.3-4.6); Glomerular Filtration Rate 91.4 mL/min (90-130); Glucose 100 mg/dL (65-115); Lipase 51 U/L (13-60); Osmolality Calculated 286 mOsm/kg (285-295); Potassium 3.7 mmol/L (3.5-5.1); Sodium 139 mmol/L (136-145); Total Bilirubin 0.2 mg/dL (0.15-1.2); Total Protein 7.1 g/dL (6.6-8.7)
[2021-07-25 00:30] LABS: Add Urine Microscopic? YES; Bilirubin Urine Neg (Negative); Blood Urine Neg (Negative); Glucose Urine UA Norm (Normal); Ketones Urine Negative (Negative); Leukocyte Esterase Urine Negative (Negative); Nitrate Urine Negative (Negative); Protein Urine Neg (Negative); Sulfosalicylic Acid Urine Negative (Negative); Urine Appearance SL Hazy (CLEAR); Urine Color Yellow (Yellow); Urobilinogen Urine Norm (Negative); pH Urine 8 (5-7)
[2021-07-25 00:31] LABS: Add Urine Culture? No; Amorphous Sediment Urine 2+ /hpf; Bacteria Urine TRACE /hpf; RBC Urine 0-4 /hpf (0-2); Squamous Epithelial Cell Urine 0-4 /hpf (0-5); WBC Urine 0-4 /hpf (0-5)
[2021-07-25] MEDS: famotidine 20 mg/2 mL INJ 40 MG IVP (01:08)
[2021-07-25 01:09] VITALS: RESP 18; O2SAT 99
[2021-07-25] MEDS: fentaNYL 50 mcg/mL INJ 2mL 25 MCG IVP (01:09)
[2021-07-25] MEDS: ondansetron 2 mg/ML SDV 2 mL 4 MG IVP (01:09)
[2021-07-25 01:16] VITALS: BP 104/81; RESP 18; O2SAT 98
[2021-07-25 01:29] VITALS: BP 116/66; RESP 18; TEMP 36.6; O2SAT 97
== END 2021-07-25 01:45 | disposition home or self-care (01) ==
PROVIDERS: Emergency Medicine; Emergency Provider Nurse Practitioner Family
DX: N83.201 Unspecified ovarian cyst, right side (principal)
CPT/HCPCS: 74177; 80053; 81001; 83690; 84703; 85025; 96374; 96375; 99284; J2405; J3010; J3490; Q9967

== ENCOUNTER 2021-08-08 00:43 | Emergency (ER) | payer MEDICAID, SELFPAY ==
[2021-08-08 00:51] VITALS: BP 115/77; PULSE 96; RESP 18; TEMP 36.4; O2SAT 100; BMI 30.8
[2021-08-08 01:55] LABS: Add Urine Microscopic? YES; Bilirubin Urine Neg (Negative); Blood Urine Neg (Negative); Glucose Urine UA Norm (Normal); Ketones Urine Negative (Negative); Leukocyte Esterase Urine 1+ (Negative); Nitrate Urine Negative (Negative); Protein Urine Neg (Negative); Specific Gravity, Urine 1.015 (1.005-1.030); Urine Appearance Clear (CLEAR); Urine Color Yellow (Yellow); Urobilinogen Urine 4 mg/dL (Negative); pH Urine 6.5 (5-7)
[2021-08-08 01:56] LABS: Add Urine Culture? No; Bacteria Urine 1+ /hpf; RBC Urine 0-4 /hpf (0-2); WBC Urine 15-25 /hpf (0-5)
[2021-08-08 01:58] LABS: Basophils % 0.6 %; Eosinophils % 0.4 %; Hematocrit 39.1 % (37.0-47.0); Hemoglobin 13.6 g/dL (11.5-15.3); Lymphocytes # 1.6 10^3/uL (1.5-6.5); Mean Corpuscular HGB Conc 34.8 g/dL (30.0-36.0); Mean Corpuscular Hemoglobin 31.6 pg (28.0-34.0); Mean Corpuscular Volume 90.7 fl (81-99); Mean Platelet Volume 11.4 fL (7.4-10.4); Monocytes # 0.4 10^3/uL (0.2-0.9); Monocytes % 8.4 %; Neutrophils # 3.04 10^3/uL (1.8-8.0); Neutrophils % 59.2 %; Nucleated Red Blood Cells % 0 %; Platelet Count 189 10^3/cmm (130-400); Red Blood Count 4.31 10^6/uL (4.1-5.3); Red Cell Distribution Width 12.9 % (12.1-15.1); White Blood Count 5.1 10^3/uL (4.5-13.0)
[2021-08-08 02:04] LABS: Anion Gap 14.4 (5-19); Blood Urea Nitrogen 8 mg/dL (6-20); Calcium 8.2 mg/dL (8.5-10.5); Carbon Dioxide 25 mmol/L (22-29); Chloride 102 mmol/L (98-107); Glomerular Filtration Rate 106.7 mL/min (90-130); Glucose 96 mg/dL (65-115); Osmolality Calculated 284 mOsm/kg (285-295); Potassium 3.4 mmol/L (3.5-5.1); Sodium 138 mmol/L (136-145)
[2021-08-08 02:24] LABS: Slide Review Slide Review Perform
[2021-08-08 02:35] VITALS: RESP 18; O2SAT 100
[2021-08-08] MEDS: sulfamethoxazole-trimeth DS 160-800 mg Tablet 1 TAB PO (02:35)
[2021-08-08] MEDS: oxyCODONE-APAP 5-325 mg Tablet 2 TAB PO (02:35)
[2021-08-08 02:51] VITALS: BP 122/78; PULSE 80; RESP 16; O2SAT 99
--- NOTE | 2021-08-08 03:31 | ED_ITS ---
HPI - Back Pain/Injury General: Chief Complaint: Back Pain/Injury Stated Complaint: L lower back and kidney is hurting Time Seen by Provider: 08/08/21 01:00 History of Present Illness: HPI Narrative: 20-year-old female becoming well- known to the ER. She presents with left-sided back and flank pain. She states it has been going on for around 24 hours. She has been nauseated. She has not thrown up. No diarrhea. No history of belly surgery. No fever. No hematuria. MD elicited complaint: back pain Onset (ago): hour(s) Timing: intermittent and progressively worsening Severity: moderate Similar Symptoms Previously: Yes Quality: stabbing Location: left flank and left lower back Exacerbating factors: movement Relieving factors: none Context: history of kidney stones and other Associated symptoms: Reports abdominal pain, chills, fatigue and nausea; Deny vomiting Review of Systems Const: Reports: chills and fatigue GI: Reports: abdominal pain and nausea; Denies: vomiting [facility] Female Reproductive History: Date of last menstrual period: 07/30/21 Physical Exam Const: COMMON NORMALS: no acute distress, patient oriented x3 and alert Resp: COMMON NORMALS: normal respiratory effort, No use of accessory muscles and clear to auscultation bilaterally AUSCULTATION: clear to auscultation bilaterally Cardio: COMMON NORMALS: regular rate and regular rhythm RATE: regular rate RHYTHM: regular rhythm GI: COMMON NORMALS: Normal to inspection, nondistended, normoactive bowel sounds present and Soft to palpation PALPATION: Yes Soft to palpation and Yes Tenderness to palpation present (GI) Details: LLQ and LUQ : BLADDER/KIDNEY EXAM: Yes CVA tenderness Back/Pelvis: GENERAL BACK: Yes CVA tenderness CVA tenderness: left Neuro: COMMON NORMALS: patient oriented x3 SENSORIUM/ORIENTATION: Yes alert Course Vital Signs: Vital signs: Vital Signs Temperature 97.6 F 08/08/21 00:51 Pulse Rate 80 08/08/21 02:51 Respiratory Rate 16 08/08/21 02:51 Blood Pressure 122/78 08/08/21 02:51 Pulse Oximetry 99 08/08/21 02:51 MDM - Back Pain/Injury MDM Narrative: Medical decision making narrative: Labs reveal a urinary tract infection, but without significant hematuria. Laboratory is otherwise normal. She will be allowed home with treatment of pyelonephritis. Lab Data: Labs: Lab Results 08/08/21 08/08/21 08/08/21 01:06 01:06 01:28 WBC 5.1 10^3/uL 10^3/ uL (4.5-13.0) RBC 4.31 10^6/uL 10^6 /uL (4.1-5.3) Hgb 13.6 g/dL g/dL (11.5-15.3) Hct 39.1 % % (37.0-47.0) MCV 90.7 fl fl (81-99) MCH 31.6 pg pg (28.0-34.0) MCHC 34.8 g/dL g/dL (30.0-36.0) RDW 12.9 % % (12.1-15.1) Plt Count 189 10^3/cmm 10^3 /cmm (130-400) MPV 11.4 fL H fL (7.4-10.4) Neut % (Auto) 59.2 % % Lymph % (Auto) 31.0 % % [place] % (Auto) 8.4 % % Eos % (Auto) 0.4 % % Baso % (Auto) 0.6 % % Neut # (Auto) 3.04 10^3/uL 10^3 /uL (1.8-8.0) Lymph # (Auto) 1.6 10^3/uL 10^3/ uL (1.5-6.5) [place] # (Auto) 0.4 10^3/uL 10^3/ uL (0.2-0.9) Eos # (Auto) 0.0 10^3/uL 10^3/ uL (0.0-0.8) Baso # (Auto) 0.0 10^3/uL 10^3/ uL (0.0-0.1) Nucleated RBC % (a uto) 0 % % Nucleated RBCs # 0.0 /100WBC /100W BC Sodium Potassium Chloride Carbon Dioxide Anion Gap BUN Creatinine GFR Calculation Glucose Calculated Osmolal ity Calcium Urine Color Yellow (Yellow) Urine Appearance Clear (CLEAR) Urine pH 6.5 (5-7) Ur Specific Gravit y 1.015 (1.005-1.030) Urine Protein Neg (Negative) Urine Glucose (UA) Norm (Normal) Urine Ketones Negative (Negative) Urine Blood Neg (Negative) Urine Nitrate Negative (Negative) Urine Bilirubin Neg (Negative) Urine Urobilinogen 4 mg/dL H mg/dL (Negative) Ur Leukocyte [place] a[place] 1+ H (Negative) Urine RBC 0-4 /hpf H /hpf (0-2) Urine WBC 15-25 /hpf H /hpf (0-5) Ur Squamous Epith Cells 10-15 /hpf H /hpf (0-5) Amorphous Sediment Not Reportable Urine Bacteria 1+ /hpf H /hpf (NONE) Urine HCG, Qual Negative (Negative) 08/08/21 01:28 WBC RBC Hgb Hct MCV MCH MCHC RDW Plt Count MPV Neut % (Auto) Lymph % (Auto) [place] % (Auto) Eos % (Auto) Baso % (Auto) Neut # (Auto) Lymph # (Auto) [place] # (Auto) Eos # (Auto) Baso # (Auto) Nucleated RBC % (a uto) Nucleated RBCs # Sodium 138 mmol/L mmol/L (136-145) Potassium 3.4 mmol/L L mmol /L (3.5-5.1) Chloride 102 mmol/L mmol/L (98-107) Carbon Dioxide 25 mmol/L mmol/L (22-29) Anion Gap 14.4 (5-19) BUN 8 mg/dL mg/dL (6-20) Creatinine 0.7 mg/dL mg/dL (0.5-0.9) GFR Calculation 106.7 mL/min mL/m in (90-130) Glucose 96 mg/dL mg/dL (65-115) Calculated Osmolal ity 284 mOsm/kg L mOs m/kg (285-295) Calcium 8.2 mg/dL L mg/dL (8.5-10.5) Urine Color Urine Appearance Urine pH Ur Specific Gravit y Urine Protein Urine Glucose (UA) Urine Ketones Urine Blood Urine Nitrate Urine Bilirubin Urine Urobilinogen Ur Leukocyte [place] ase Urine RBC Urine WBC Ur Squamous Epith Cells Amorphous Sediment Urine Bacteria Urine HCG, Qual Discharge Plan Discharge Patient Disposition: Home Clinical Impression: Pyelonephritis Condition: Stable Prescriptions: New hydrocodone-acetaminophen 5-325 mg tablet 1 tab PO Q8H PRN (Reason: pain) Qty: 7 RF: 0 Bactrim DS 800-160 mg tablet 1 tab PO DAILY 7 Days Qty: 14 RF: 0 No Action topiramate [Topamax] 25 mg tablet 25 mg PO DAILY 30 Days Qty: 30 RF: 0 buspirone 5 mg tablet 5 mg PO TID 30 Days Qty: 90 RF: 0 diclofenac potassium 50 mg tablet 50 mg PO Q8H PRN (Reason: pain) Qty: 12 RF: 0 Discharge Orders: Discharge ED (Routine); Ordered 08/08/21 Ordered By: Vance Metzger Discharge Diet: Advance as tolerated Discharge Activity: Increase activity as tolerated Patient Instructions: Kidney Infection (ED) Coding Level of Care Code 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
== END 2021-08-08 02:45 | disposition home or self-care (01) ==
PROVIDERS: Physician Assistant; Emergency Provider Emergency Medicine
DX: N12 Tubulo-interstitial nephritis, not specified as acute or chronic (principal)
CPT/HCPCS: 80048; 81001; 81025; 85025; 99283